=== PATIENT | male | born 2000 | race Caucasian/White ===

== ENCOUNTER 2020-03-14 15:25 | Emergency (ER) | payer SELFPAY ==
[~2020-03-14] VITALS: Ht 177.8 cm; Wt 77.1 kg
[2020-03-14 15:44] VITALS: Ht 177.8 cm; Wt 77.1 kg
[2020-03-14 19:14] VITALS: BP 113/78
== END 2020-03-14 19:09 | disposition home or self-care (01) ==
LOC: ED 15:25
DX: R41.82 Altered mental status, unspecified (principal); F12.10 Cannabis abuse, uncomplicated; F10.20 Alcohol dependence, uncomplicated